=== PATIENT | male | born 1975 | race American Indian/Alaskan Native ===

== ENCOUNTER 2017-05-19 16:46 | Emergency (ER) | payer SELFPAY ==
[2017-05-19 16:46] VITALS: BMI 23.6
[2017-05-19 17:02] VITALS: BP 122/88; PULSE 84; TEMP 98.2
[2017-05-19] MEDS ORDERED: Naproxen 550 mg Tab PO STA (17:15)
--- NOTE | 2017-05-19 17:18 | ED PDOC ---
Arrival/HPI - General Chief Complaint: Back Pain Time Seen by Provider: 05/19/17 16:48 Historian: Patient - History of Present Illness Narrative History of Present Illness (Text): 05/19/17 20:04 41 yo M presents with atraumatic intermittent R sided neck pain worse with movement for the past 2-3 days. Denies any injury, fall, headache, dizziness, weakness, numbness, CP, SOB, and sore throat. Has no other complaints. PMD clinic Past Medical History - Provider Review Nursing Documentation Reviewed: Yes - Infectious Disease Hx of Infectious Diseases: None - Cardiac Hx Cardiac Disorders: No - Pulmonary Hx Respiratory Disorders: Yes Hx Asthma: Yes - Neurological Hx Neurological Disorder: No - HEENT Hx HEENT Disorder: No - Renal Hx Renal Disorder: No - Endocrine/Metabolic Hx Endocrine Disorders: No - Hematological/Oncological Hx Blood Disorders: No - Integumentary Hx Dermatological Disorder: No - Musculoskeletal/Rheumatological Hx Musculoskeletal Disorders: No - Gastrointestinal Hx Gastrointestinal Disorders: No - Genitourinary/Gynecological Hx Genitourinary Disorders: No - Psychiatric Hx Psychophysiologic Disorder: No Hx Substance Use: Yes - Anesthesia Hx Anesthesia: No Family/Social History - Physician Review Nursing Documentation Reviewed: Yes Family/Social History: No Known Family HX Smoking Status: Former Smoker Hx Alcohol Use: Yes Frequency of alcohol use: Socially Hx Substance Use: Yes Substance used: marijuana Allergies/Home Meds Allergies/Adverse Reactions: Allergies No Known Allergies Allergy (Verified 05/19/17 16:55) Home Medications: Home Meds Medication Instructions Recorded Confirmed Albuterol HFA [Ventolin HFA 90 1 inh INH PRN PRN 01/09/17 05/19/17 mcg/actuation (8 g)] Review of Systems - Review of Systems Constitutional: Normal. absent: Fatigue, Weight Change, Fevers ENT: Normal. absent: Hearing Changes, Tinnitus, Sinus Congestion Respiratory: Normal. absent: SOB, Cough, Sputum Cardiovascular: Normal. absent: Chest Pain, Palpitations, Edema Musculoskeletal: Normal, Neck Pain. absent: Arthralgias, Back Pain Skin: Normal. absent: Rash, Pruritis, Skin Lesions Physical Exam Vital Signs Reviewed: Yes Vital Signs Temp Pulse Resp BP Pulse Ox 05/19/17 17:37 16 98 05/19/17 16:57 98.2 F 84 18 122/88 100 Temperature: Afebrile Blood Pressure: Normal Pulse: Regular Respiratory Rate: Normal Appearance: Positive for: Well-Appearing, Non-Toxic, Comfortable Pain Distress: None Mental Status: Positive for: Alert and Oriented X 3 - Systems Exam Head: Present: Atraumatic, Normocephalic Pupils: Present: PERRL Extroacular Muscles: Present: EOMI Conjunctiva: Present: Normal Ears: Present: Normal, NORMAL TM, Normal Canal Mouth: Present: Moist Mucous Membranes Pharnyx: Present: Normal. No: ERYTHEMA, EXUDATE, TONSILS ENLARGED Nose (External): Present: Atraumatic Nose (Internal): Present: Normal Inspection Neck: Present: Normal Range of Motion, Paraspinal Tenderness (mild point tenderness to the L paracervical with mild spasm). No: Meningeal Signs, MIDLINE TENDERNESS, Lymphadenopathy, Trachea Midline Respiratory/Chest: Present: Clear to Auscultation, Good Air Exchange. No: Respiratory Distress, Accessory Muscle Use, Wheezes, Rhonchi Cardiovascular: Present: Regular Rate and Rhythm, Normal S1, S2. No: Murmurs Upper Extremity: Present: Normal Inspection, Normal ROM, NORMAL PULSES, Neurovascularly Intact, Norm 2-Pt Discrimination. No: Cyanosis, Edema, Tenderness, Swelling, Erythema, Temperature Abnormalties, Deformity Neurological: Present: GCS=15, CN II-XII Intact, Speech Normal Skin: Present: Warm, Dry, Normal Color. No: Rashes Medical Decision Making ED Course and Treatment: 05/19/17 17:15 41 yo M presents with atraumatic R sided neck pain. Based on history and exam, likely neck muscle spasm. Pt medicated with naprosyn po. Rx for mobic and flexeril sent to pt's preferred pharmacy. Pt advised to follow up with pmd in 1-2 days without fail. Take medication as prescribed. Return to the ER at any time for any new or worsening symptoms. - Medication Orders Current Medication Orders: Discontinued Medications Naproxen (Anaprox Ds) 550 mg PO ONCE STA Stop: 05/19/17 17:16 Last Admin: 05/19/17 17:35 Dose: 550 mg - PA / COMBER TENDER / Resident Statement /DO has reviewed & agrees with the documentation as recorded. Disposition/Present on Arrival - Present on Arrival Any Indicators Present on Arrival: No History of DVT/PE: No History of Uncontrolled Diabetes: No Urinary Catheter: No History of Decub. Ulcer: No History Surgical Site Infection Following: None - Disposition Have Diagnosis and Disposition been Completed?: Yes Diagnosis: Neck pain Disposition: HOME/ ROUTINE Disposition Time: 17:10 Patient Plan: Discharge Condition: STABLE Discharge Instructions (ExitCare): Muscle Spasm (ED) Print Language: PASHT[place] Additional Instructions: Follow up with pmd in 1-2 days without fail. Take medication as prescribed. Return to the ER at any time for any new or worsening symptoms. Prescriptions: Cyclobenzaprine [Cyclobenzaprine HCl] 10 mg PO TID PRN #15 tab PRN Reason: Muscle Spasm Meloxicam [Mobic] 15 mg PO DAILY #20 tab Referrals: PCP,NO [Primary Care Provider] - Follow up with primary
[2017-05-19 17:37] VITALS: RESP 16; O2SAT 98
== END 2017-05-19 17:37 | disposition home or self-care (01) ==
LOC: ED 16:46
DX: M54.2 Cervicalgia (principal)

== ENCOUNTER 2017-10-03 14:25 | Emergency (ER) | payer OTHER ==
[2017-10-03 14:25] VITALS: BMI 23.6
--- NOTE | 2017-10-03 14:46 | ED PDOC ---
Arrival/HPI - General Chief Complaint: Respiratory Distress Time Seen by Provider: 10/03/17 14:26 Historian: Patient - History of Present Illness Narrative History of Present Illness (Text): 10/03/17 14:40 42 year old male, whose past medical history includes Asthma, presents to the emergency department by EMS complaining of worsening shortness of breath that began this morning. Patient was given 3-4 breathing treatments by EMS with relief. Patient believed he was having an asthma attack after he when down and up the stairs. He reports he used his nebulizer treatment with no relief. Patient currently feels better and denies any fever, chills, chest pain, shortness of breath, nausea, vomiting, diarrhea, back pain, neck pain, headache , dizziness, or any other complaints. PMD: None Time/Duration: Other (This morning) Symptom Onset: Sudden Symptom Course: Improving Activities at Onset: Light Context: Home Past Medical History - Provider Review Nursing Documentation Reviewed: Yes - Infectious Disease Hx of Infectious Diseases: None - Cardiac Hx Cardiac Disorders: No - Pulmonary Hx Respiratory Disorders: Yes Hx Asthma: Yes - Neurological Hx Neurological Disorder: No - HEENT Hx HEENT Disorder: No - Renal Hx Renal Disorder: No - Endocrine/Metabolic Hx Endocrine Disorders: No - Hematological/Oncological Hx Blood Disorders: No - Integumentary Hx Dermatological Disorder: No - Musculoskeletal/Rheumatological Hx Musculoskeletal Disorders: No - Gastrointestinal Hx Gastrointestinal Disorders: No - Genitourinary/Gynecological Hx Genitourinary Disorders: No - Psychiatric Hx Psychophysiologic Disorder: No Hx Substance Use: Yes - Anesthesia Hx Anesthesia: No Family/Social History Family/Social History: Unknown Family HX Smoking Status: Former Smoker Hx Alcohol Use: Yes Frequency of alcohol use: Few days per week Hx Substance Use: Yes Substance used: marijuana Allergies/Home Meds Allergies/Adverse Reactions: Allergies No Known Allergies Allergy (Verified 10/03/17 14:29) Home Medications: Home Meds Medication Instructions Recorded Confirmed Albuterol HFA [Ventolin HFA 90 1 inh INH PRN PRN 01/09/17 10/03/17 mcg/actuation (8 g)] Review of Systems - Physician Review All systems were reviewed & negative as marked: Yes - Review of Systems Constitutional: absent: Fevers, Other (Chills) Respiratory: SOB Cardiovascular: absent: Chest Pain Gastrointestinal: absent: Diarrhea, Nausea Musculoskeletal: absent: Back Pain, Neck Pain Neurological: absent: Headache, Dizziness Physical Exam Vital Signs Reviewed: Yes Vital Signs Temp Pulse Resp BP Pulse Ox 10/03/17 16:25 98.5 F 112 H 20 119/75 110 H 10/03/17 14:25 98.2 F 135 H 18 136/83 100 Temperature: Afebrile Blood Pressure: Normal Pulse: Tachycardic Respiratory Rate: Normal Appearance: Positive for: Well-Appearing, Non-Toxic, Comfortable Pain Distress: None Mental Status: Positive for: Alert and Oriented X 3 - Systems Exam Head: Present: Atraumatic, Normocephalic Pupils: Present: PERRL Extroacular Muscles: Present: EOMI Conjunctiva: Present: Normal Mouth: Present: Moist Mucous Membranes Neck: Present: Normal Range of Motion Respiratory/Chest: Present: Clear to Auscultation, Wheezes (Minimal Wheezes). No: Respiratory Distress, Accessory Muscle Use Cardiovascular: Present: Regular Rate and Rhythm, Normal S1, S2. No: Murmurs Abdomen: Present: Normal Bowel Sounds. No: Tenderness, Distention, Peritoneal Signs Back: Present: Normal Inspection Upper Extremity: Present: Normal Inspection. No: Cyanosis, Edema Lower Extremity: Present: Normal Inspection. No: Edema Neurological: Present: GCS=15, CN II-XII Intact, Speech Normal Skin: Present: Warm, Dry, Normal Color. No: Rashes Psychiatric: Present: Alert, Oriented x 3, Normal Insight, Normal Concentration Medical Decision Making ED Course and Treatment: 10/03/17 14:40 Impression: 42 year old male presents complaining of asthma attack after going down and up the stairs. Patient's shortness of breath has improved. lung clear i ner. pt tachycardic, suspect 2/2 nebs. labs imaging pending Plan: -- EKG -- Labs -- Chest X-ray -- Reassess and disposition Progress Notes: 10/03/17 15:03 ekg sinus tach [address] twave changes 10/03/17 16:13 tachycardia improving. pt well appearing, lungs clear in er. cxr neg. nonspecific luekocytosis. urine neg. pt asking for dc advise outpt fu and return precautions - Lab Interpretations Lab Results: 10/03/17 15:00 10/03/17 15:00 Lab Results 10/03/17 15:45: Urine Color Light yellow, Urine Appearance Clear, Urine pH 6.5, Ur Specific Mcdaniel 1.010, Urine Protein Trace H, Urine Glucose (UA) Negative, Urine Ketones Negative, Urine Blood Negative, Urine Nitrate Negative, Urine Bilirubin Negative, Urine Urobilinogen 0.2, Ur Leukocyte Esterase Negative, Urine RBC 0 - 2, Urine WBC 0 - 2, Ur Epithelial Cells 0 - 2, Urine Bacteria Small 10/03/17 15:00: Sodium 139, Potassium 4.0, Chloride 100, Carbon Dioxide 28, Anion Gap 16, BUN 14, Creatinine 0.9, Est GFR ( Amer) > 60, Est GFR (Non- Af Amer) > 60, Random Glucose 125 H, Calcium 9.7, Total Bilirubin 0.9, AST 27, ALT 18, Alkaline Phosphatase 91, Total Protein 8.6 H, Albumin 4.2, Globulin 0.9 , Albumin/Globulin Ratio 4.7 H 10/03/17 15:00: PT 13.0 H, INR 1.19 H, APTT 31.6, D-Dimer, Quantitative 235 10/03/17 15:00: WBC 13.0 H, RBC 4.59, Hgb 13.6 L, Hct 40.9 L, MCV 89.1, MCH 29.6 , MCHC 33.3, RDW 13.3, Plt Count 424, MPV 9.7, Gran % 78.1 H, Lymph % (Auto) 17.4 L, [place] % (Auto) 3.6, Eos % (Auto) 0.7 L, Baso % (Auto) 0.2, Gran # 10.18 H , Lymph # 2.3, [place] # 0.5, Eos # 0.1, Baso # 0.03 I have reviewed the lab results: Yes - RAD Interpretation Radiology Orders: 10/03/17 14:41 CHEST PORTABLE [RAD] Stat - EKG Interpretation Interpreted by ED Physician: Yes Type: 12 lead EKG - Scribe Statement The provider has reviewed the documentation as recorded by the Terrance Apple Provider Scribe Attestation: All medical record entries made by the Lingibjono were at my direction and personally dictated by me. I have reviewed the chart and agree that the record accurately reflects my personal performance of the history, physical exam, medical decision making, and the department course for this patient. I have also personally directed, reviewed, and agree with the discharge instructions and disposition. Disposition/Present on Arrival - Present on Arrival Any Indicators Present on Arrival: No History of DVT/PE: No History of Uncontrolled Diabetes: No Urinary Catheter: No History of Decub. Ulcer: No History Surgical Site Infection Following: None - Disposition Have Diagnosis and Disposition been Completed?: Yes Diagnosis: Asthma Disposition: HOME/ ROUTINE Disposition Time: 16:14 Condition: STABLE Discharge Instructions (ExitCare): Asthma (ED) Additional Instructions: please follow up with your doctor. return to er with worsening symptoms or concerns. Prescriptions: Albuterol 0.083% [Albuterol 0.083% Inhal Anitha (2.5 mg/3 ml) UD] 2.5 mg IH Q4 PRN #20 PRN Reason: Wheezing Prednisone 50 mg PO DAILY #5 tablet Referrals: PCP,NO [Primary Care Provider] - [facility] with [facility] [Outside] - Follow up with primary [facility] [place] - Follow up with primary Forms: [employer] ([place])
--- NOTE | 2017-10-03 15:24 | RAD ---
HISTORY: cough COMPARISON: Chest x-ray performed 12/02/16 TECHNIQUE: Chest, one view. FINDINGS: LUNGS: Hyperinflation may be seen in the setting of COPD. No focal consolidation. Please note that chest x-ray has limited sensitivity for the detection of pulmonary masses. PLEURA: No significant pleural effusion identified. No definite pneumothorax . CARDIOVASCULAR: The cardiomediastinal silhouette appears within normal limits of size. OSSEOUS STRUCTURES: No acute osseous abnormality identified. VISUALIZED UPPER ABDOMEN: Unremarkable. OTHER FINDINGS: None. IMPRESSION: Hyperinflation may be seen in the setting of COPD.
[2017-10-03 15:25] LABS: BASO # 0.03 K/mm3 (0.0-2.0); BASO % 0.2 % (0.0-3.0); EOS # 0.1 (0.0-0.7); EOS % 0.7 % (1.5-5.0); GRAN # 10.18 (1.4-6.5); GRAN % 78.1 % (50.0-68.0); HEMATOCRIT 40.9 % (42.0-52.0); LYMPH # 2.3 (1.2-3.4); LYMPH % 17.4 % (22.0-35.0); MEAN CELL VOLUME 89.1 fl (80.0-105.0); MEAN CORPUSCULAR HEMOGLOBIN 29.6 pg (25.0-35.0); MEAN CORPUSCULAR HGB CONC 33.3 g/dl (31.0-37.0); MEAN PLATELET VOLUME 9.7 fl (7.0-11.0); MONO # 0.5 (0.1-0.6); MONO % 3.6 % (1.0-6.0); RED CELL DISTRIBUTION WIDTH 13.3 % (11.5-14.5)
[2017-10-03 15:34] LABS: INR 1.19 (0.93-1.08); PARTIAL THROMBOPLASTIN TIME 31.6 Seconds (25.1-36.5)
[2017-10-03 15:43] LABS: ALKALINE PHOSPHATASE 91 U/L (38-126); ALT/SGPT 18 U/L (7-56); AST/SGOT 27 U/L (17-59); BILIRUBIN,TOTAL 0.9 mg/dL (0.2-1.3); BLOOD UREA NITROGEN 14 mg/dL (7-21); CALCIUM 9.7 mg/dL (8.4-10.5); CARBON DIOXIDE 28 mmol/L (21-33); CHLORIDE 100 mmol/L (98-107); GFR AFRICAN-AMERICAN > 60; GLUCOSE,RANDOM 125 mg/dL (70-110); SODIUM 139 mmol/L (132-148); TOTAL PROTEIN 8.6 g/dL (5.8-8.3)
[2017-10-03 15:55] LABS: PH,URINE 6.5 (4.7-8.0); URINE BILIRUBIN NEGATIVE (NEGATIVE); URINE BLOOD NEGATIVE (NEGATIVE); URINE GLUCOSE (UA) NEGATIVE (NEGATIVE); URINE KETONE NEGATIVE (NEGATIVE); URINE LEUKOCYTE ESTERASE NEGATIVE Leu/uL (NEGATIVE); URINE PROTEIN TRACE mg/dL (<30 mg/dL); URINE UROBILINOGEN 0.2 E.U./dL (<1 E.U./dL)
[2017-10-03 15:57] LABS: ALB/GLOB RATIO 4.7 (1.1-1.8)
[2017-10-03 16:05] LABS: URINE APPEARANCE CLEAR (CLEAR); URINE COLOR LIGHT YELLOW (YELLOW)
[2017-10-03 16:13] LABS: URINE BACTERIA SMALL (NEG); URINE EPITHELIAL CELLS 0 - 2 /hpf (0-5); URINE RBC 0 - 2 /hpf (0-2); URINE WBC 0 - 2 /hpf (0-6)
[2017-10-03 16:26] VITALS: BP 119/75; PULSE 112; RESP 20; TEMP 98.5; O2SAT 110
--- NOTE | 2017-10-04 17:46 | CARD ---
APPROVED REPORT EKG Measurement Heart [id number] <Conclusion> Sinus tachycardia Possible Left atrial enlargement Borderline ECG
== END 2017-10-03 16:23 | disposition home or self-care (01) ==
LOC: ED 14:25
DX: J45.909 Unspecified asthma, uncomplicated (principal); Z87.891 Personal history of nicotine dependence